=== PATIENT | male | born 1965 | race Hispanic/Latino ===

== ENCOUNTER 2023-05-05 18:50 | Emergency (ER) | payer BC ==
[~2023-05-05] VITALS: Ht 188 cm; Wt 104.5 kg
[2023-05-05] VITALS (12 sets, daily range): BP systolic 134–152; BP diastolic 84–104
[2023-05-05] MEDS ORDERED: TYLENOL # 31 TA1 PO (21:30)
== END 2023-05-05 21:44 | disposition home or self-care (01) | DRG 563 ==
LOC: ED 18:50
DX: S82.52XA Displaced fracture of medial malleolus of left tibia, initial encounter for closed fracture (principal); S90.31XA Contusion of right foot, initial encounter; I10 Essential (primary) hypertension; E11.9 Type 2 diabetes mellitus without complications; W16.622A Jumping or diving into natural body of water striking bottom causing other injury, initial encounter; Y93.19 Activity, other involving water and watercraft; Y92.828 Other wilderness area as the place of occurrence of the external cause